=== PATIENT | male | born 2000 | race Caucasian/White ===

== ENCOUNTER 2023-08-15 10:55 | Emergency (ER) | payer OTHER, SELFPAY ==
--- NOTE | ~2023-08-15 | CT_ITS ---
EXAMINATION: CT abdomen pelvis w con DATE: 08/15/2023 15:50 INDICATION: Umbilical and right lower quadrant pain and tenderness. TECHNIQUE: Computed tomography (CT) of the abdomen and pelvis was performed with 100 mL Omnipaque-350 intravenous contrast. Automated exposure control and iterative reconstruction technique were employe d. The dose-length product was 376.72 mGy-cm. COMPARISON: None FINDINGS: Lung bases are clear. Heart size is normal. No pericardial or pleural effusion. Liver, gallbladder, s pleen, pancreas, bilateral adrenal glands and kidneys are normal. There is fluid scattered throughout the colon as well as within several loops of nondilated small bowel consistent with nonspecific diar shine. Normal appendix. Bladder is normal. IMPRESSION: 1. Fluid scattered throughout the nondilated large and small bowel consistent with nonspecific diarrh ea. Correlate clinically for gastroenteritis. 2. No other acute intra-abdominal/pelvic process. Specifically the appendix is normal. Reviewed, dictated and finalized at location A. IMPRESSION: 1. Fluid scattered throughout the nondilated large and small bowel consistent w ith nonspecific diarrhea. Correlate clinically for gastroenteritis. 2. No other acute intra-abdominal/pelvic process. Specifically the appendix is normal.
[2023-08-15 11:02] VITALS: BP 123/77; PULSE 111; RESP 16; TEMP 36.6; O2SAT 98
[2023-08-15 14:25] LABS: Basophils Absolute Auto 0.1 K/mm3 (0.0-0.1); Basophils Percent Auto 0.6 % (0.2-1.2); Eosinophils Absolute Auto 0.1 K/mm3 (0-0.3); Eosinophils Percent Auto 0.6 % (0-4.4); Hemoglobin 16.1 g/dL (14.0-18.0); Immature Granulocyte Absolute 0.04 K/mm3 (0.00-0.031); Immature Granulocyte Percent A 0.4 % (0-0.5); Lymphocytes Absolute Auto 0.74 K/mm3 (0.9-3.2); Lymphocytes Percent Auto 8.3 % (18.3-44.2); Mean Corpuscular HGB Conc 33.5 g/dl (32-36); Mean Corpuscular Hemoglobin 31.1 pg (26-34); Mean Corpuscular Volume 92.7 fl (80-100); Mean Platelet Volume 10.4 fl (7.4-10.4); Monocytes Absolute Auto 0.5 K/mm3 (0.1-0.6); Monocytes Percent Auto 5.3 % (2.6-8.5); Neutrophils Absolute Auto 7.6 K/mm3 (1.3-6.7); Neutrophils Percent Auto 84.8 % (45.5-73.1); Platelet Count Result 185 k/mm3 (150-375); Red Blood Count 5.18 M/mm3 (4.6-6.20); Red Cell Distribution Width 12.8 % (11.5-14.5); White Blood Count 8.9 K/mm3 (4.5-10.0)
[2023-08-15 14:34] LABS: Alanine Aminotransferase 39 U/L (6-50); Albumin Level 5.1 g/dL (3.5-5.1); Alkaline Phosphatase 62 U/L (38-126); Anion Gap 12 mmol/L (8-16); Aspartate Amino Transferase 40 U/L (17-59); Bilirubin,Total 1.5 mg/dL (0.2-1.3); Blood Urea Nitrogen 25 mg/dL (9-20); Calcium 9.2 mg/dL (8.4-10.2); Carbon Dioxide 27 mmol/L (22-30); Chloride 99 mmol/L (98-107); Estimated CRCL calculation 97 ml/min; Estimated Glomerular Filt Rate > 60; Glucose 113 mg/dL (65-110); Lipase 40 U/L (23-300); Potassium 3.8 mmol/L (3.4-5.0); Sodium 138 mmol/L (137-145)
[2023-08-15 14:41] VITALS: BP 118/84; PULSE 89; RESP 18; O2SAT 99
--- NOTE | 2023-08-15 15:24 | ED.ABDPAIN ---
HPI - Abdominal Pain General Chief Complaint: Abdominal Pain Stated Complaint: abdominal pain/n/v/d Time Seen by Provider: 08/15/23 14:56 History of Present Illness HPI narrative: Patient is a 23-year-old male presenting with abdominal pain. Patient states that last night he developed profuse diarrhea and projectile vomiting. States this lasted all night and then he developed periumbilical and right lower quadrant pain. He went to urgent care who advised that he come to the ER for further evaluation. Currently, he states that his symptoms have improved but they have been intermittent. No hematemesis, melena, hematochezia. No fevers, cough, chest pain, shortness of breath, dysuria, rashes. Related Data Allergies Allergy/AdvReac Type Severity Reaction Status Date / Time No Known Allergies Allergy Verified 08/15/23 14:03 Review of Systems Review of Systems: All systems reviewed & are unremarkable except as noted in HPI and below Exam Narrative: GENERAL: Well-appearing, in no acute distress, pleasant and cooperative HEAD: Normocephalic, atraumatic. EYES: PERRLA and EOMI. ENT: Mucous membranes moist. NECK: Supple. CHEST: Clear to auscultation. No respiratory distress. HEART: Regular rate and rhythm ABDOMEN: Soft, + tender especially periumbilical region, mild right lower quadrant tenderness, no guarding or rebound EXTREMITIES: Normal range of motion. No edema. SKIN: Warm, dry, no rash. NEURO: No focal deficits. Alert and oriented x3. PSYCH: Normal mood and affect. Course Vital Signs Vital signs: Vital Signs Temperature 97.8 F 08/15/23 11:02 Pulse Rate 111 H 08/15/23 11:02 Respiratory Rate 16 08/15/23 11:02 Blood Pressure 123/77 08/15/23 11:02 Pulse Oximetry 98 08/15/23 11:02 Oxygen Delivery Room Air 08/15/23 11:02 Temperature 97.8 F 08/15/23 11:02 Pulse Rate 76 08/15/23 18:52 Respiratory Rate 16 08/15/23 18:52 Blood Pressure 148/86 H 08/15/23 18:52 Pulse Oximetry 98 08/15/23 18:52 Oxygen Delivery Room Air 08/15/23 11:02 MDM - Abdominal Pain MDM Narrative Medical decision making narrative: Patient is a 23-year-old male presenting with abdominal pain, vomiting, diarrhea. Vital stable. Exam remarkable for the above. Blood work is unremarkable. CT abdomen pelvis shows evidence of diarrheal state consistent with gastroenteritis. On reevaluation, the patient is resting comfortably. No further episodes of vomiting. Discussed the work-up with the patient and advised PCP follow-up. Will prescribe short course of Zofran. Appropriate supportive care discussed. Discharged in stable condition. Differential Diagnosis Differential diagnosis: Likely abdominal pain, acute appendicitis, constipation, gastroenteritis and pancreatitis Medical Records Attestation: I reviewed the patient's medical records. Lab Data Attestation: I reviewed the patient's lab results. 08/15/23 14:09 08/15/23 14:09 Labs: Lab Results 08/15/23 08/15/23 08/15/23 Range/Units 14:09 15:55 17:09 WBC 8.9 (4.5-10.0) K/mm3 RBC 5.18 (4.6-6.20) M/mm3 Hgb 16.1 (14.0-18.0) g/dL Hct 48.0 (42.0-52.0) % MCV 92.7 (80-100) fl MCH 31.1 (26-34) pg MCHC 33.5 (32-36) g/dl RDW 12.8 (11.5-14.5) % Plt Count 185 (150-375) k/mm3 MPV 10.4 (7.4-10.4) fl Immature Gran % (Auto) 0.4 (0-0.5) % Neut % (Auto) 84.8 H (45.5-73.1) % Lymph % (Auto) 8.3 L (18.3-44.2) % [place] % (Auto) 5.3 (2.6-8.5) % Eos % (Auto) 0.6 (0-4.4) % Baso % (Auto) 0.6 (0.2-1.2) % Lymph # (Auto) 0.74 L (0.9-3.2) K/mm3 [place] # (Auto) 0.5 (0.1-0.6) K/mm3 Eos # (Auto) 0.1 (0-0.3) K/mm3 Baso # (Auto) 0.1 (0.0-0.1) K/mm3 Abs Immat Gran (auto) 0.04 H (0.00-0.031) K/mm3 Absolute Neuts (auto) 7.6 H (1.3-6.7) K/mm3 Absolute Nucleated RBC 0.0 (0.0-0.012) K/mm3 Nucleated RBC % 0.0 (0.0-0.2) % Sodium 138 (137-
[2023-08-15] MEDS: SODIUM CHLORIDE 0.9% IV 1,000 ML 999 ML IV CONT (15:33)
[2023-08-15 15:35] VITALS: BP 116/72; PULSE 92; RESP 18; O2SAT 100
[2023-08-15 16:47] LABS: Influenza A QL RT-PCR Negative (Negative); Influenza B QL RT-PCR Negative (Negative); SARS-CoV-2 RNA PCR Negative (Negative)
[2023-08-15 17:37] LABS: Appearance Urine Clear (Clear); Bacteria Urine None Seen /hpf; Bilirubin Urine Negative (Negative); Blood Urine Negative (Negative); Color Urine Yellow (Yellow); Glucose Urine UA Negative (Negative); Ketones Urine Negative (Negative); Leukocyte Esterase Ur Negative LEU/UL (Negative); Nitrate Urine Negative (Negative); Non Pathogenic Casts 0-2; Protein Urine Trace mg/dL (Negative); RBC Urine 0-2 /hpf (0-2); Squamous Epithelial Cell Urine None seen /hpf (Few); Urobilinogen Urine 0.2 mg/dL (<2.0); WBC Urine 0-5 /hpf; pH Urine 5.5 (5.0-9.0)
[2023-08-15 17:38] VITALS: PULSE 96; RESP 18; O2SAT 100
[2023-08-15 17:44] LABS: Add Urine Microscopic? YES
[2023-08-15 18:31] VITALS: PULSE 85; O2SAT 100
[2023-08-15 18:52] VITALS: BP 148/86; PULSE 76; RESP 16; O2SAT 98
== END 2023-08-15 18:53 | disposition home or self-care (01) ==
PROVIDERS: Emergency Provider Emergency Medicine
DX: K52.9 Noninfective gastroenteritis and colitis, unspecified (principal)
CPT/HCPCS: 36415; 74177; 80053; 81001; 83690; 85025; 87636; 96360; 96361; 99284; J7030; Q9967